=== PATIENT | male | born 1990 | race Caucasian/White ===

== ENCOUNTER → 2022-11-06 07:46 | Outpatient (CLI) | payer BC, SELFPAY ==
--- NOTE | ~2022-11-06 | US_ITS ---
US right upper quadrant INDICATION: Elevated liver enzymes PROCEDURE: Realtime right upper abdominal ultrasound. COMPARISON: No prior studies for comparison. FINDINGS: The pancreas is normal without focal mass or pancreatic ductal dilation. Liver echotexture is increased, consistent with fatty infiltration. There is normal directional flow in the portal ve in. The gallbladder is normal without stones, gallbladder wall thickening or pericholecystic fluid. Comm on bile duct measures 3 mm. No sonographic Ramírez's sign. IMPRESSION: 1: Hepatic steatosis. Reviewed, dictated and finalized at location B. IMPRESSION: 1: Hepatic steatosis.
== END ==
PROVIDERS: PCP Student in an Organized Health Care Education/Training Program; Visit Provider Student in an Organized Health Care Education/Training Program
DX: K76.0 Fatty (change of) liver, not elsewhere classified (principal)
CPT/HCPCS: 76705

== ENCOUNTER 2024-07-05 08:15 | Outpatient (CLI) | payer OTHER, SELFPAY ==
--- NOTE | ~2024-07-05 | CT_ITS ---
EXAMINATION: CT diagnostic chest wo con DATE: 07/05/2024 08:35 INDICATION: Chronic cough TECHNIQUE: Computed tomography (CT) of the chest was performed without intravenous contrast. Addition al 3D reconstructions utilizing coronal maximum intensity projection (MIP) were performed. Automated exposure control and iterative reconstruction technique were employed. The dose-length product was 80 2.54 mGy-cm. COMPARISON: None FINDINGS: Couple tiny calcified nodules in the right middle and lower lobes consistent with sequela level granu lomatous disease. No pneumonia, pulmonary edema, suspicious pulmonary nodules or pleural effusion. He art size is normal. No pericardial effusion. There is a triangular region with mixed fat and soft tis darwin density in the anterior mediastinum consistent with mild thymic hyperplasia. No pathologically en larged thoracic lymphadenopathy. Prominent diffuse hepatic steatosis with focal sparing along the por ta hepatis and gallbladder fossa. Mild thoracic spondylosis. IMPRESSION: 1. Minimal stigmata of old granulomatous disease. No acute cardiopulmonary disease. 2. Diffuse hepatic steatosis. Reviewed, dictated and finalized at location A. NG END BANDER IMPRESSION: 1. Minimal stigmata of old granulomatous disease. No acute cardiopulmonary dise ase. 2. Diffuse hepatic steatosis.
== END 2024-07-05 08:16 | disposition home or self-care (01) ==
PROVIDERS: PCP Student in an Organized Health Care Education/Training Program; Visit Provider Student in an Organized Health Care Education/Training Program
DX: R05.3 Chronic cough (principal); K76.0 Fatty (change of) liver, not elsewhere classified
CPT/HCPCS: 71250